=== PATIENT | male | born 1970 | race Caucasian/White ===

== ENCOUNTER → 2018-03-29 | Outpatient (CLI) | payer OTHER ==
[2018-04-02 11:38] LABS: Cow's Milk IgE Class CLASS 0; Egg White IgE <0.35 kU/L (<0.35); Peanut IgE <0.35 kU/L (<0.35); Potato IgE <0.35 kU/L (<0.35); Potato IgE Class CLASS 0; Soybean IgE <0.35 kU/L (<0.35)
[2018-04-02 11:39] LABS: Alt. alternata IgE Class CLASS III; Alternaria alternata IgE 7.68 kU/L (<0.35); Asperg. fumagatus IgE <0.35 kU/L (<0.35); Asperg. fumagatus IgE Class CLASS 0; Aureo. pullulans IgE <0.35 kU/L (<0.35); Birch(Com.Silvr) IgE 6.04 kU/L (<0.35); Birch(Com.Silvr) IgE Class CLASS III; Candida albicans IgE Class CLASS 0; Cat Epith & Dander IgE Class CLASS III; Clad herbarum IgE <0.35 kU/L (<0.35); Cockroach IgE 1.49 kU/L (<0.35); Com. Pigweed IgE <0.35 kU/L (<0.35); Com. Pigweed IgE Class CLASS 0; Cottonwood IgE <0.35 kU/L (<0.35); Dermato. Pteronyssinus IgE 0.56 kU/L (<0.35); Dermato. farinae IgE 1.01 kU/L (<0.35); Dermato. farinae IgE Class CLASS II; Dog Dander IgE 1.21 kU/L (<0.35); English Plantain IgE Class CLASS 0; Epicoccum purpurascens Class CLASS I; Epicoccum purpurascens IgE 0.39 kU/L (<0.35); Johnson Grass IgE Class CLASS 0; Lamb's Quarter IgE <0.35 kU/L (<0.35); Lamb's Quarter IgE Class CLASS 0; Maple (Box Elder) IgE 0.73 kU/L (<0.35); Maple (Box Elder) IgE Class CLASS II; Mucor racemosus IgE <0.35 kU/L (<0.35); Mucor racemosus IgE Class CLASS 0; Oak IgE 3.53 kU/L (<0.35); Rhizopus nigricans IgE <0.35 kU/L (<0.35); S.rostrata/Helminth Class CLASS 0; S.rostrata/Helminth IgE <0.35 kU/L (<0.35); Sycamore(Mpl.Lf) IgE <0.35 kU/L (<0.35); Timothy Grass IgE 4.85 kU/L (<0.35); Walnut Tree IgE 1.14 kU/L (<0.35); Walnut Tree IgE Class CLASS II; White Ash IgE Class CLASS 0
== END | disposition home or self-care (01) ==
LOC: LABWHC1 09:29
PROVIDERS: ATTEND Otolaryngology
DX: J30.89 Other allergic rhinitis (principal)
CPT/HCPCS: 36415; 86003

== ENCOUNTER → 2019-06-19 | Outpatient (CLI) | payer OTHER ==
--- NOTE | 2019-06-19 12:26 | XR ---
EXAMINATION TYPE: XR foot complete LT DATE OF EXAM: 06/19/2019 COMPARISON: NONE HISTORY: Pain in left foot. TECHNIQUE: AP, lateral and oblique views of the left foot were obtained. FINDINGS: Oblique lucency through the distal portion of the first proximal phalanx without significan t displacement. No additional fracture or dislocation is seen. Small lucent area is seen at the endpl ate of the first distal phalanx medially which may related to small bone cyst. Soft tissue swelling i s seen around the fracture site. IMPRESSION: First proximal phalanx nondisplaced fracture.
== END | disposition home or self-care (01) ==
LOC: RADXRMAIN 11:47
PROVIDERS: ATTEND Emergency Medicine
DX: S92.415A Nondisplaced fracture of proximal phalanx of left great toe, initial encounter for closed fracture (principal)